=== PATIENT | male | born 1960 | race Caucasian/White ===

== ENCOUNTER 2018-04-22 14:54 | Emergency (ER) | payer OTHER ==
[~2018-04-22] VITALS: Ht 188 cm; Wt 92.8 kg
[2018-04-22] MEDS ORDERED: SKELAXIN800 MG PO (16:49)
[2018-04-22] MEDS ORDERED: NORCO 5/3251 TABLET PO (16:49)
[2018-04-22] MEDS ORDERED: PREDNISONE10 M1 PO (16:49)
[2018-04-22 17:24] VITALS: BP 163/92
== END 2018-04-22 17:24 | disposition home or self-care (01) ==
LOC: EME 14:54
DX: M54.42 Lumbago with sciatica, left side (principal)
CPT/HCPCS: 99281; 99283; J1885